=== PATIENT | male | born 1960 | race Hispanic/Latino ===

== ENCOUNTER 2020-12-26 12:50 | Emergency (ER) | payer MEDICAID ==
[2020-12-26 13:09] VITALS: BP 123/73
--- NOTE | 2020-12-26 13:19 | Emergency Department Report ---
ED Neck Pain/Injury HPI - General Chief Complaint: Neck Pain/Injury Stated Complaint: NUMBNESS OF SIDE NECK Time Seen by Provider: 12/26/20 13:04 Mode of arrival: Ambulatory Limitations: No Limitations - History of Present Illness Initial Comments: Patient presents with a 2-week history of neck pain on the right associate with numbness involving the right jaw, right neck, right shoulder area, and right chest area. He states that this started 2 weeks ago. He is concerned that he may be having a stroke. He states that he had a stroke years ago. 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 He has no residual deficit. He does take a baby aspirin every day. After his stroke, he had been placed on Plavix. He states that he was taken off that several months ago. His cafeteria aide was in agreement. Etiology for the primary stroke was never known. He was never told that he had A. fib, a PDA, or any other acute pathology. Patient was also diagnosed with coronavirus 1 week ago. He does not know if this numbness in the right neck is related to that. He has not noticed any aggravating or alleviating factors. Again, his symptoms started 2 weeks prior. - Related Data Home Medications Medication Instructions Recorded Confirmed Last Taken Isosorbide Mononitrate [Isosorbide 30 mg PO DAILY 08/28/13 06/23/16 08/28/13 Mononitrate ER] Previous Rx's Medication Instructions Recorded Last Taken Type Clopidogrel [Plavix] 75 mg PO QDAY #30 tablet 06/23/16 Unknown Rx Metoprolol [Lopressor TAB] 25 mg PO BID #60 tablet 06/23/16 Unknown Rx Pravastatin [Pravachol] 20 mg PO QHS #30 tablet 06/23/16 Unknown Rx Ranolazine ER [Ranexa ER] 500 mg PO BID #60 tablet 06/23/16 Unknown Rx Aspirin EC [Halfprin EC] 81 mg PO QDAY #30 tablet. 12/06/19 Unknown Rx Allergies Allergy/AdvReac Type Severity Reaction Status Date / Time No Known Allergies Allergy Verified 06/21/16 20:58 ED Review of Systems ROS: Stated complaint: NUMBNESS OF SIDE NECK Other details as noted in HPI Comment: All other systems reviewed and negative Constitutional: denies: fever Eyes: denies: vision change ENT: denies: throat pain Respiratory: denies: cough Cardiovascular: denies: chest pain Endocrine: denies: unexplained weight loss Gastrointestinal: denies: abdominal pain Genitourinary: denies: dysuria Musculoskeletal: denies: back pain Skin: denies: rash Neurological: as per HPI Hematological/Lymphatic: denies: easy bruising ED Past Medical Hx - Past Medical History Hx Hypertension: Yes Hx CVA: Yes (Apr 2009) Hx Heart Attack/AMI: Yes Hx Congestive Heart Failure: No Hx Diabetes: No Hx Arthritis: Yes Hx Asthma: No Hx COPD: No Hx Tuberculosis: No Hx HIV: No Additional medical history: Sleep Apnea - Surgical History Hx Open Heart Surgery: Yes Hx Appendectomy: Yes (2009) - Family History Family history: hypertension - Social History Smoking Status: Current Every Day Smoker (We discussed tobacco cessation x3 minutes) Substance Use Type: Alcohol - Medications Home Medications: Home Medications Medication Instructions Recorded Confirmed Last Taken Type Isosorbide Mononitrate [Isosorbide 30 mg PO DAILY 08/28/13 06/23/16 08/28/13 History Mononitrate ER] Clopidogrel [Plavix] 75 mg PO QDAY #30 tablet 06/23/16 Unknown Rx Metoprolol [Lopressor TAB] 25 mg PO BID #60 tablet 06/23/16 Unknown Rx Pravastatin [Pravachol] 20 mg PO QHS #30 tablet 06/23/16 Unknown Rx Ranolazine ER [Ranexa ER] 500 mg PO BID #60 tablet 06/23/16 12/05/19 Unknown Rx Aspirin EC [Halfprin EC] 81 mg PO QDAY #30 tablet. 12/06/19 Unknown Rx ED Physical Exam - General Limitations: No Limitations, Other ( pulse ox was noted and normal. Is not hypoxic.) General appearance: alert, in no apparent distress - Head Head exam: Present: atraumatic, normocephalic, normal inspection - Eye Eye exam: Present: normal appearance, EOMI. Absent: scleral icterus - ENT ENT exam: Present: normal exam, normal orophraynx, mucous membranes moist, normal external ear exam - Neck Neck exam: Present: normal inspection. Absent: meningismus - Respiratory Respiratory exam: Present: normal lung sounds bilaterally. Absent: respiratory distress - Cardiovascular Cardiovascular Exam: Present: regular rate, normal rhythm - GI/Abdominal GI/Abdominal exam: Present: soft. Absent: distended, tenderness - Extremities Exam Extremities exam: Present: normal capillary refill. Absent: pedal edema - Back Exam Back exam: Absent: CVA tenderness (R), CVA tenderness (L) - Neurological Exam Neurological exam: Present: alert, oriented X3, CN II-XII intact, normal gait, motor sensory deficit ( Mild sensory deficit involving the left mandible area), other ( NIH score is 1). Absent: reflexes normal - Psychiatric Psychiatric exam: Present: normal affect, normal mood - Skin Skin exam: Present: warm, dry ED Course Vital Signs 12/26/20 13:08 Temperature 97.8 F Pulse Rate 59 L Respiratory 16 Rate Blood Pressure 123/73 [Right] O2 Sat by Pulse 96 Oximetry - Reevaluation(s) Reevaluation #1: 12/26/20 13:18 Patient was discharged. ED Medical Decision Making - Medical Decision Making patient presents with isolated numbness involving the right jaw and neck area. Etiology for this is not known. Patient does not appear to have any other hemiplegic symptoms. Symptoms started 2 weeks ago. There is no indication for CT without contrast as this does not represent an acute stroke. He may benefit from MRI. This could also be related to coronavirus. Patient will be increased on aspirin dosing to 325 mg. He will follow-up as an outpatient to get MRI. He has no medical indication that would require emergent admission for stroke evaluation at this time. There is no evidence of dysrhythmia when I listen. He does not appear to be septic or toxic. This could also represent cervical radiculopathy which MRI would be appropriate for. Critical care attestation.: If time is entered above; I have spent that time in minutes in the direct care of this critically ill patient, excluding procedure time. ED Disposition Clinical Impression: Neck pain on right side, Numbness Disposition: HOME / SELF CARE / HOMELESS Is pt being admited?: No Condition: Stable Instructions: Paresthesia, Radicular Pain, Pain Without a Known Cause Additional Instructions: Take a full aspirin every day, 325 mg. Follow-up with your regular doctor, your cafeteria aide, or the referral doctor to discuss and get MRI obtained as an outpatient. Return for problems or concerns. Referrals: PRIMARY CARE, [Referring] - 3-5 Days COREY FOX MD [Staff Physician] - 3-5 Days
== END 2020-12-26 14:13 | disposition home or self-care (01) ==
LOC: ED 12:50
DX: M54.2 Cervicalgia (principal); R20.2 Paresthesia of skin; I10 Essential (primary) hypertension; Z90.89 Acquired absence of other organs; F17.200 Nicotine dependence, unspecified, uncomplicated; F10.20 Alcohol dependence, uncomplicated; Z86.73 Personal history of transient ischemic attack (TIA), and cerebral infarction without residual deficits; Z86.16 Personal history of COVID-19
CPT/HCPCS: 99282